=== PATIENT | male | born 1950 | race Caucasian/White ===

== ENCOUNTER → 2020-11-30 | Outpatient (CLI) | payer MEDICARE ==
--- NOTE | 2020-11-30 14:26 | ECHOS ---
STRESS ECHOCARDIOGRAM INDICATIONS: Chest pain BASELINE HEART RATE: 58 BASELINE BLOOD PRESSURE: 116/50 MAXIMUM HEART RATE: 135 MAXIMUM BLOOD PRESSURE: 195/110 85% MPHR: 129 100% MPHR: 152 METS: 12.1 MAXIMUM STAGE REACHED: 4 TOTAL EXERCISE TIME: 11:17 CLINICAL INFORMATION: Baseline EKG revealed normal sinus rhythm with a right bundle branch block pattern and repolarization abnormality. The patient walked on standard Michael protocol for a total duration of 11 minutes and 17 seconds, achieved a maximal heart rate of 135 beats per minute, which is more than 85% of predicted maximal. He developed fatigue and shortness of breath but did not have any angina. EKG did not reveal any new ST-segment changes to indicate ischemia, but because of resting EKG changes, this is considered an inconclusive stress test. The peak heart rate was about 135 beats per minute. Excellent exercise capacity with inconclusive stress test by EKG criteria was noted. Baseline echo images revealed normal wall motion and wall thickening of all segments. At peak exercise, the quality of images was suboptimal, but there is no evidence to suggest any stress-induced ischemia on this study. FINAL IMPRESSION: 1. Excellent exercise capacity with an inconclusive stress test by EKG criteria because of resting EKG changes. 2. Normal stress echocardiogram, but the quality of images was suboptimal. MMODL / IJN: [id number] /
== END | disposition home or self-care (01) ==
LOC: RADNMMAIN 09:09
PROVIDERS: ATTEND Family Medicine
DX: R07.9 Chest pain, unspecified (principal)
CPT/HCPCS: 93351

== ENCOUNTER 2024-01-08 10:04 | Day surgery (SDC) | payer MEDICARE ==
[2024-01-07 10:41] VITALS: BMI 28.7
[2024-01-08 11:40] VITALS: TEMP 97
[2024-01-08] MEDS: IV FLUID CONTINUATION 1,000 ML IV ONE (11:45)
[2024-01-08] MEDS: LACTATED RINGERS 1,000 ML IV SCH (11:46)
[2024-01-08] MEDS ORDERED: PROPOFOL 10 MG/ML 20 ML VIAL IV ONE (12:29)
[2024-01-08] MEDS ORDERED: GLYCOPYRROLATE 0.2 MG/ML 2 ML VIAL ONE (12:29)
--- NOTE | 2024-01-08 12:43 | P.PCN ---
Date of Procedure: 01/08/24 Procedure(s) Performed: BRIEF HISTORY: Patient is a 72-year-old pleasant white male scheduled for an elective colonoscopy as a part of screening for colon cancer. PROCEDURE PERFORMED: Colonoscopy. Snare polypectomy PREOPERATIVE DIAGNOSIS: Screening for colon cancer. IV sedation per Anesthesia. PROCEDURE: After informed consent was obtained, the patient, was brought into the endoscopy unit. IV sedation was administered by Anesthesia under continuous monitoring. Digital rectal examination was normal. Initially the Olympus CF-160 flexible video colonoscope was then inserted in the rectum, gradually advanced into the cecum without any difficulty. Careful examination was performed as the scope was gradually being withdrawn. Ileocecal valve and the appendiceal orifice were visualized and appeared normal. Prep was excellent. Mucosa of the cecum, ascending colon, appeared normal. The hepatic polyp was removed by cold snare polypectomy. In the transverse colon there was a 8 mm polyp removed by cold snare polypectomy. Rest of the transverse colon, descending colon, sigmoid colon, and rectum appeared normal. Retroflexion was performed in the rectum and no lesions were seen. The patient tolerated the procedure well. IMPRESSION: 5 mm hepatic flexure polyp status post snare polypectomy 8 mm transverse colon polyp status post polypectomy RECOMMENDATIONS: Findings of this examination were discussed with the patient as well as his family. He was advised to follow with the biopsy results. If the biopsy reveals adenoma he can have repeat colonoscopy in 5 years
[2024-01-08 13:16] VITALS: BP 142/83; PULSE 52; RESP 16
== END 2024-01-08 13:56 | disposition home or self-care (01) ==
LOC: ORWHC2ENDO 10:04
PROVIDERS: ATTEND Internal Medicine Gastroenterology
DX: Z12.11 Encounter for screening for malignant neoplasm of colon (principal); D12.3 Benign neoplasm of transverse colon; I10 Essential (primary) hypertension; E78.5 Hyperlipidemia, unspecified; J44.9 Chronic obstructive pulmonary disease, unspecified; Z86.79 Personal history of other diseases of the circulatory system; Z88.0 Allergy status to penicillin; Z79.899 Other long term (current) drug therapy
CPT/HCPCS: 88305; 45385; J2704; J1596